=== PATIENT | female | born 1930 | race Caucasian/White ===

== ENCOUNTER → 2016-11-17 | Outpatient (CLI) | payer OTHER, MEDICARE ==
[~2016-11-17] VITALS: Ht 165.1 cm; Wt 58.1 kg
[~2016-11-17] MED LIST: ALFALFA250 MG PO; AMITIZA 24 MCG24 MC1 PO; APAP500 PO; ARTIFICIAL TEA1 EACH OP; ASPIRIN325 PO; ATROVENT15 ML NS; AZOPT OPHTH1 %/10 M1 OP; B-100 COMPLEX1 EAC1 PO; BAYER ADVANCED500 MG PO; BUTRANS1 EAC1 TD; CALCIUM CITRATE; CENTRUM SILVER1 EAC4 PO; CO Q-10200 MG PO; COMBIGAN EYE DR10 ML OP; DIGITEK250 MC1 PO; DIGOXIN250 MCG PO; DILAUDID 2 MG TA2 MG PO; DILAUDID2 MG PO; ESCITALOPRAM OXA5 MG PO; FISH OIL 1,0001 EAC5 PO; FOLIC ACID0.8 MG PO; GINKGO BILOBA120 M1 PO; GINKGO BILOBA40 M1 PO; GLUCOSAMINE &1 EACH PO; HYDROCODON-ACE1 EAC7 PO; IBUPROFEN 200200 M1 PO; KELP1 EACH PO; LATANOPROST 0.2.5 ML OP; MECLIZINE HCL25 M1 PO; METHADONE HCL5 MG PO; MOBIC7.5 MG PO; MOVANTIK25 MG PO; NAMENDA 10 MG T10 MG PO; NASONEX17 GM NS; OMEGA-31000 MG PO; TRIAMTERENE-HC1 EAC1 PO; VITAMIN B-12500 MCG PO; VITAMIN B1 PO; VITAMIN C + RO500 MG PO; VITAMIN D2 PO; VITAMIN D2400 UNIT PO; VITAMIN D31000 UNI2 PO; VITAMIN E400 UNIT PO; [UNRECOGNIZED DRUG - OTHER]; [UNRECOGNIZED DRUG - OTHER]; [UNRECOGNIZED DRUG - OTHER] PO; [UNRECOGNIZED DRUG - OTHER] PO; [UNRECOGNIZED DRUG - OTHER] PO
--- NOTE | ~2016-11-17 | HPC ---
[facility] [address] [place] [address] PAIN MANAGEMENT CONSULTATION Name: VIOLETTA BYERS Room #: REG GUERA Deya.#: [id number] Admission: 11/17/16 Attend Phys: Dariel Garcia MD Discharge: Date of : 30 Report #: [id number] THIS REPORT FOR: //name// CC: Rusty Garcia DATE OF SERVICE: 11/17/2016 Follow up visit for osteoarthritis and low back pain following lumbar fusion. The patient is here today with her daughter for an epidural injection. She has had good response to injections previously in the past, reporting at times up to 3-4 months of excellent relief. This favorable response is the reason that they have returned to the pain clinic today, hopeful that an injection will provide further improvement. They understand that these are not cure injections, but can provide quite substantial improvement in quality of life for the patient. Pain today is described as a 5, it is worse in her back and with walking. She walks upright with local discomfort over her scar as well as into the lower back and hips. MEDICATIONS: Amitiza, methadone 5 mg b.i.d., Movantik, Tylenol, omega-3, Atrovent, cholecalciferol, Antivert, Lexapro, digoxin, and triamterene/hydrochlorothiazide. ALLERGIES: No allergies or sensitivities. PHYSICAL EXAMINATION: She is a karo, somewhat forgetful 86-year-old. Mild dementia has been noted previously. Blood pressure is 156/89, heart rate 62, respirations 16, she is 5 feet 5 inches, and 128 pounds. She walks with bilateral canes. She can walk short distances, but is little unsteady due to vertigo. Chest is clear. Cardiac rhythm was regular. Pain across the low back is noted with limited flexion and extension due to her fusion. Straight leg raising bilaterally reproduces pain into the hips, but no further limited radicular symptoms. IMPRESSION: 1. Post-laminectomy syndrome with radiculopathy. Status post lumbar fusion. 2. Osteoarthritis, particularly left shoulder, which is now better after recent treatments. 3. Management of high risk medication, methadone 2.5 mg now 3 times daily. 4. Opioid-induced constipation. 5. Lumbar radiculopathy with spondylosis. PROCEDURE: Epidural steroid injection under fluoroscopic guidance. [address] [address] PAIN MANAGEMENT CONSULTATION Name: VIOLETTA BYERS Room #: REG GUERA Cuadra#: [id number] Admission: 11/17/16 Attend Phys: Dariel Garcia MD Discharge: Date of : 30 Report #: [id number] The patient was taken to fluoroscopic suite, placed prone, skin prepped with ChloraPrep and a 20-gauge Tuohy epidural needle advanced at first attempt into the epidural space with loss of resistance. No blood or CSF aspirated. A 1 mL of Omnipaque was injected, spread of dye observed nicely into the epidural space followed by 3 mL of 0.5% lidocaine mixed with 80 mg of triamcinolone. She tolerated the procedure well and was observed for 45 minutes and discharged. Follow up as needed. <ELECTRONICALLY SIGNED> By: Dariel Garcia MD 11/29/16 1130 1601 2206 Dariel Garcia MD /nt
--- NOTE | ~2016-11-17 | EKG ---
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
[2016-11-17 11:30] VITALS: BP 156/89
== END | disposition home or self-care (01) ==
LOC: PAIN 07:04
DX: M96.1 Postlaminectomy syndrome, not elsewhere classified (principal); M19.012 Primary osteoarthritis, left shoulder; M47.26 Other spondylosis with radiculopathy, lumbar region; G89.29 Other chronic pain; K59.09 Other constipation; Z87.891 Personal history of nicotine dependence

== ENCOUNTER → 2017-04-09 | Outpatient (CLI) | payer OTHER, MEDICARE ==
[~2017-04-09] VITALS: Ht 165.1 cm; Wt 58.5 kg
[~2017-04-09] MED LIST changes: +MIRALAX17 GM PO; +SENOKOT-S1 TA1 PO
--- NOTE | ~2017-04-09 | HPC ---
[facility] [address] [place] [address] PAIN MANAGEMENT CONSULTATION Name: VIOLETTA BYERS Room #: REG GUERA Deya.#: [id number] Admission: 04/09/17 Attend Phys: Dariel Garcia MD Discharge: Date of : 30 Report #: [id number] THIS REPORT FOR: //name// CC: ASHLEY Garcia DATE OF SERVICE: 04/09/2017 Followup visit for low back pain and radiculopathy. The patient returns to pain clinic today and I am pleased to report that she has done very well with her methadone at a fairly low dose. She takes 2.5 mg 3 times a day. Her daughter is with her today. We discussed the use of this medication. All of methadone has reputation of being a rather stronger pain medication and I have used it multiple times in patients in their 8, one patient even in her 90s in our practices, even on dose as high as 60 mg. It is tolerated well and is continuing to play bridge! The same may be said for the patient who already has some problems with memory. There has been little change in her affect or in her cognitive abilities as we have added methadone. What we have seen, however, is substantial reduction in her pain. This has been a pleasant surprise to the patient and her daughter. She does not complain of her left shoulder anymore or her low back. Her pain score today is 0/10. Some ways this has been a very miraculous medication for her and they are pleased to want to continue on it. She denies any significant side effects including constipation, but has stool softeners and laxatives, which help prevent these issues. I provided her with a prescription today for her methadone 45 tablets per month, which is taken one-half tablet 3 times a day and also Amitiza, which can be taken on an as needed basis. PHYSICAL EXAMINATION: She appears younger than her stated age. She uses bilateral canes to walk. She has no difficulty getting up and down on her own. She has some tenderness across her low back and into the legs. IMPRESSION: 1. Chronic low back pain with radiculopathy. 2. Management of high risk medication, gabapentin. 3. Some cognitive issues, which predate the use of her medication. These have not been affected by the use of her drugs. 4. Osteoarthritis, particularly of the left shoulder. PLAN: Medications renewed for 3 months, methadone and Amitiza and I plan to see her at that time. In terms of our opioid agreement, we reviewed the importance [address] [place] [address] PAIN MANAGEMENT CONSULTATION Name: VIOLETTA BYERS Room #: REG [facility] Deya.#: [id number] Admission: 04/09/17 Attend Phys: Dariel Garcia MD Discharge: Date of : 30 Report #: [id number] of safeguarding medication so that they cannot be diverted by others was discussed. By: [id number] MD karina Brown
[2017-04-09 14:27] VITALS: BP 133/75
== END | disposition home or self-care (01) ==
LOC: PAIN 06:48
DX: M54.10 Radiculopathy, site unspecified (principal); M19.012 Primary osteoarthritis, left shoulder; Z87.891 Personal history of nicotine dependence

== ENCOUNTER → 2017-10-05 | Outpatient (CLI) | payer OTHER, MEDICARE ==
[~2017-10-05] VITALS: Ht 162.6 cm; Wt 55.8 kg
[~2017-10-05] MED LIST changes: +ASPIR 8181 MG PO; +HYDROCODONE-AP1 EAC6 PO; +MECLIZINE HCL25 MG PO; +MOVANTIK12.5 MG PO; +PROAIR RESPICL90 MCG INH
--- NOTE | ~2017-10-05 | HPC ---
[facility] [address] [place] [address] PAIN MANAGEMENT CONSULTATION Name: VIOLETTA BYERS Room #: REG GUERA FalkAlexis#: [id number] Admission: 10/05/17 Attend Phys: Dariel Garcia MD Discharge: Date of : 30 Report #: [id number] THIS REPORT FOR: //name// CC: Rusty Garcia DATE OF SERVICE: 10/05/2017 Followup visit for management of high risk medications. HISTORY OF PRESENT ILLNESS: The patient is here today with her daughter. She is doing pretty well. She is 87 years old, but certainly looks much younger. She has some early dementia and some of this is concealed in speaking with her until it has been a little bit more time. She has ongoing pain, which is 8 with movement in her left shoulder and low back. It is worse with activities. MEDICATIONS: Reviewed and reconciled. ALLERGIES: None. PQRS REVIEW: She is a nonsmoker. She is not a fall risk at this time. She is on opioid medication and is on an opioid agreement, medications are managed for her with the assistance of her daughter. They both understand the importance of safeguarding medication. She is not hypertensive. Her weight is controlled and she has a BMI of 21.1. She appears fit and younger than her stated age. She has arthritis mostly in the left shoulder, which bothers her considerably and is her primary pain generator with her low back probably secondary: IMPRESSION: 1. Chronic low back pain with radiculopathy. 2. Osteoarthritis, left shoulder. 3. Management of high risk medication. RECOMMENDATIONS: Medications renewed under terms of our opioid agreement. Followup visit is planned in 3 months. MEDICATIONS ON DISCHARGE: Methadone 5 mg one-half tablet in the morning and one tablet p.m.; hydrocodone 5/325 one tablet for breakthrough pain daily; Movantik 12.5 mg daily p.r.n., #12 per month, a very expensive medication. By: [id number] Dariel Garcia MD /nt
[2017-10-05 13:05] VITALS: BP 139/87
== END ==
LOC: PAIN 07:12
DX: M54.16 Radiculopathy, lumbar region (principal); M19.012 Primary osteoarthritis, left shoulder; F03.90 Unspecified dementia, unspecified severity, without behavioral disturbance, psychotic disturbance, mood disturbance, and anxiety; Z79.899 Other long term (current) drug therapy

== ENCOUNTER → 2019-05-26 | Outpatient (CLI) | payer OTHER, MEDICARE ==
[~2019-05-26] VITALS: Ht 162.6 cm; Wt 61.2 kg
[~2019-05-26] MED LIST changes: +VOLTAREN GEL 1100 G1 TOP; +XANAX 0.25 MG0.25 MG PO
[2019-05-26 13:24] VITALS: BP 151/91
--- NOTE | 2019-05-26 13:42 | NUR ---
Pain Clinic Assessment: 1. History of Osteoarthritis: SPINE JOINTS History of Rheumatoid Arthritis: 2. Height: 5 ft. 4 in. 162.6 cm. Weight: 135.0 lb. oz. 61.236 kg. Patient's BMI: 23.2 3. Vital Signs: BP: 151/91 Pulse: 75 Resp: 16 Temp: 02 Sat: 97 ECG Mon: 4. Pain Intensity: Unable to Rate 5. Fall Risk: Dizziness: N Needs help standing or walking: Y Fallen in the last 3 months: Y Fall risk comments: 6. Patient on Blood Thinner: None 7. History of Hypertension: Y 8. Opioid Therapy greater than 6 weeks: Y Opiate Contract Signed: 01/25/18 9. Risk Assessment Tool Provided: LOW 10. Functional Assessment Tool: 11. Recreational Drug Use: Never Drug Type: Tobacco Use: Former Smoker Tobacco Type: Amount or Packs/day: How Many Years: Alcohol Use: Yes Frequency: Weekly Quant:
--- NOTE | 2019-05-30 08:39 | HPC ---
[facility] [address] [place] [address] PAIN MANAGEMENT CONSULTATION Name: VIOLETTA BYERS Room #: REG [facility] Khalif#: [id number] Admission: 05/26/19 Attend Phys: Yisel James Discharge: Date of : 30 Report #: [id number] THIS REPORT FOR: //name// CC: Yisel James [facility] DATE OF SERVICE: 05/26/2019 CHIEF COMPLAINT: Chronic shoulder pain, osteoarthritis and abdominal pain. HISTORY OF PRESENT ILLNESS: This is an 88-year-old female who returns to the pain clinic today with her daughter who is here present with her today. She does live with this daughter. The patient has memory issues though she is able to function at a high level. Regarding her activities, she is forgetful and able to tell me some history. We have not seen the patient for a year. In this timeframe, she has been doing quite well. According to her daughter, she is no longer taking methadone and only takes hydrocodone very sparingly, as well as some Tylenol Extra Strength sparingly throughout the day for her pain control. She is reporting pain in her low back and her abdomen and shoulder today. It is a dull pain, but she was unable to give me a pain score. She said her back pain is worse especially when bending, but her medications that she takes are helpful as well as lying down. The patient has been recently having significant eye issues undergoing glaucoma surgery that was unsuccessful. Does rely on her daughter for many things. She has ongoing issues with constipation unrelated to opioids. They do utilize coconut oil as well as Senokot-S. The daughter is requesting a refill of her hydrocodone to have on hand that the patient takes a half to one tablet sparingly when she has very severe pain. ALLERGIES: No known drug allergies. CURRENT LIST OF MEDICATIONS: Hydrocodone 5/325 p.r.n., Xanax 0.25 mg p.r.n., Senokot daily, Tylenol Extra Strength daily, artificial tears, latanoprost drops daily, Azopt ophthalmic drops b.i.d., digoxin 250 mcg daily. PQRS: 1. She has history of osteoarthritis in her spine and her shoulder. Denies history of rheumatoid arthritis. 2. Height is 5 feet 4 inches, weight is 135, BMI is 23. 3. Vital signs: Blood pressure 151/91, pulse is 75, respirations 16, oxygen sat is 97. Unable to rate her pain score. 4. Denies dizziness. Does need help walking. She has a walker at all times and has fallen in the last 3 months. 5. The patient is not on any blood thinners, but does [place] [address] PAIN MANAGEMENT CONSULTATION Name: VIOLETTA BYERS Room #: REG GUERA Cuadra#: [id number] Admission: 05/26/19 Attend Phys: Yisel James Discharge: Date of : 30 Report #: [id number] 6. Her opioid therapy is greater than 6 weeks; therefore, an opioid signed contract is on the chart. Her risk assessment tool is low. Functional assessment is 26/70. 7. Recreational drug use, she denies. She is a former smoker and occasionally drinks alcohol. We did call the pharmacy. Her last fill was greater than 6 months ago for her medications of any narcotics. PHYSICAL EXAMINATION: GENERAL: This is a pleasant and alert, but forgetful 88-year-old female. HEENT: Normocephalic, atraumatic. Extraocular eye muscles are intact. Mucous membranes are moist. MUSCULOSKELETAL: Pain with abduction and internal rotation of her bilateral shoulders. Lower back pain is increased with extension and flexion. She walks with an antalgic gait using a walker at all times. Her lower extremity strength judged to be 5/5 in all major muscle groups. IMPRESSION: 1. Osteoarthritis involving the left shoulder as well as the right shoulder. 2. Dementia. 3. Low back pain. PLAN: 1. We discussed the patient's use of medications today. I find that it is very reasonable to allow them to have a small amount of hydrocodone on hand when the patient does experience severe pain. No scripts have been given in greater than a year and they not filled in the last 6 months. I explained to the family that the CDC guidelines have changed significantly in the past year. She may only be able to fill a 7-day supply of this medicine, but since she does have a history of filling narcotics in the past, they may get filled the entire prescription. Family verbalizes understanding. Scripts given today for hydrocodone 5/325 one q.6 hours, #30 for one prescription only. The patient will have the family called if they are needing additional medications in the future and will come in for an appointment. 2. We did talk about constipation issues, the patient experiences even without narcotics. She may need to increase her water intake as well as her Senokot and her coconut oil. 3. The patient's family will call as needed. Dr. Dariel Garcia did collaborate care with this patient. <ELECTRONICALLY SIGNED> By: Yisel James 05/30/19 0839 [id number] [id number] Yisel James /kiko
== END ==
LOC: PAIN 07:00
DX: M19.012 Primary osteoarthritis, left shoulder (principal); M19.011 Primary osteoarthritis, right shoulder; M54.5 Low back pain; F03.90 Unspecified dementia, unspecified severity, without behavioral disturbance, psychotic disturbance, mood disturbance, and anxiety; Z88.8 Allergy status to other drugs, medicaments and biological substances

== ENCOUNTER → 2019-12-08 | Outpatient (CLI) | payer OTHER, MEDICARE ==
[~2019-12-08] VITALS: Ht 162.6 cm; Wt 62.3 kg
[~2019-12-08] MED LIST changes: +MIRALAX119 GM PO
[2019-12-08 14:25] VITALS: BP 167/78
--- NOTE | 2019-12-08 14:36 | NUR ---
Pain Clinic Assessment: 1. History of Osteoarthritis: SPINE JOINTS History of Rheumatoid Arthritis: Not Applicable 2. Height: 5 ft. 4 in. 162.6 cm. Weight: 137.4 lb. oz. 62.324 kg. Patient's BMI: 23.6 3. Vital Signs: BP: 167/78 Pulse: 83 Resp: 20 Temp: 02 Sat: 98 ECG Mon: 4. Pain Intensity: 3 5. Fall Risk: Dizziness: N Needs help standing or walking: Y Fallen in the last 3 months: N Fall risk comments: 6. Patient on Blood Thinner: None 7. History of Hypertension: Y 8. Opioid Therapy greater than 6 weeks: Y Opiate Contract Signed: 01/25/18 9. Risk Assessment Tool Provided: LOW 10. Functional Assessment Tool: 11. Recreational Drug Use: Never Drug Type: Tobacco Use: Former Smoker Tobacco Type: Amount or Packs/day: How Many Years: Alcohol Use: No Frequency: Quant:
--- NOTE | 2019-12-12 12:47 | HPC ---
[facility] [place] [address] PAIN MANAGEMENT CONSULTATION Name: VIOLETTA BYERS Room #: REG GUERA Cuadra#: [id number] Admission: 12/08/19 Attend Phys: Yisel James Discharge: Date of : 30 Report #: [id number] THIS REPORT FOR: cc: Rusty Mcclendon MD, Frank W. MD Hocker,Yisel SANCHEZ THIS REPORT FOR: //name// CC: Yisel Mcclendon DATE OF SERVICE: 12/08/2019 CHIEF COMPLAINT: Chronic shoulder pain, osteoarthritis and back pain. HISTORY OF PRESENT ILLNESS: This is an 89-year-old female, who we have not seen since last May, who was returned to the pain clinic today for a refill of her medications that she has been taking very sparingly under the direction of her daughter who she currently lives with. The patient tells me her back pain is quite tender, rating it at a pain score of 3/10. Per the family's report, the patient does complain of increasing pain when she is walking for prolonged periods of time or after getting ready in the morning. She feels that resting as well as taking an occasional pain pill or Tylenol has been beneficial. The patient has been able to answer some of my questions today, though she does have issues with memory and the daughter has been helpful in filling in the gaps of some of her activity and medication at this time. The patient does not have problems with constipation as long as she takes MiraLax or manages it with diet on a regular basis. She is not suffering from any daytime sleepiness. She has been able to wean off some of her other medications since she has been living with her daughter. Today, they are requesting refill of her hydrocodone. ALLERGIES: No known drug allergies. CURRENT LIST OF MEDICATIONS: MiraLax, hydrocodone 5/325 p.r.n., Xanax 0.25 mg daily, ProAir, Tylenol Extra Strength daily, artificial tears, latanoprost and Azopt drops. PQRS: 1. She has osteoarthritis in multiple joints in her spine. Denies any rheumatoid arthritis. 2. Height is 5 feet 4 inches, weight is 137, BMI is 23. 3. Vital signs 167/78, pulse is 83, respirations 20, oxygen sat is 98. 4. Pain score is 3/10. 5. Denies dizziness. The patient does use a walker at all times. Has not fallen in the last [address] [address] PAIN MANAGEMENT CONSULTATION Name: VIOLETTA BYERS Room #: REG [facility].#: [id number] Admission: 12/08/19 Attend Phys: Yisel James Discharge: Date of : 30 Report #: [id number] 6. The patient is not on any blood thinners, but does take medicine for hypertension. Her opioid therapy is greater than 6 weeks. There is an opioid signed contract on the chart, though she is not filling her medicines in a monthly fashion. 7. Risk assessment tool is low. Functional assessment is 26/70. 8. Recreational drug use, she denies. She is a former smoker and does not drink alcohol. Her last prescription fill was in May. Her morphine mEq is less than 5 MMEs per day. PHYSICAL EXAMINATION: GENERAL: This is a pleasant and alert 89-year-old female that is forgetful in some of her thoughts. She does suffer from dementia. HEENT: Normocephalic, atraumatic. Extraocular eye muscles are intact. Mucous membranes are moist. Her left eye, she is legally blind. Her right eye, she has decreased visual galindo. MUSCULOSKELETAL: She has pain across her lumbar spine that does increase with flexion and rotation. She walks with an antalgic gait using a walker at all times. Her lower extremity strength judged to be 4/5 in all major muscle groups, though she is deconditioned. IMPRESSION: 1. Osteoarthritis involving her multiple joints. 2. Dementia. 3. Low back pain. PLAN: 1. We discussed treatment options with the patient today. The patient reports that with her family present that the medications seem to be beneficial when she does have increased pain, especially when she is walking. They do take her to the park and the mall to walk fairly frequently and try to offer her hydrocodone prior to increase activity. The patient feels this is beneficial. She also takes supplemental Extra Strength Tylenol for her pain. I explained to them that we will refill her hydrocodone 5/325, first we will prescribe 30 pills. Since it has been several months since her last prescription fill, the pharmacy may only allow a 7-day supply. We will then write a second prescription to be released in 1 week for again hydrocodone 5/325, #30 pills. Based on the patient's history, this medication may last for 3-6 months. The family verbalize understanding. 2. The patient is seen today in collaboration with Dr. Dariel Garcia who agreed upon the plan. The patient returned as needed for medications. <ELECTRONICALLY SIGNED> By: Yisel James 12/12/19 1247 1521 [id number] Yisel James /kiko
== END ==
LOC: PAIN 06:54
DX: M19.011 Primary osteoarthritis, right shoulder (principal); M19.012 Primary osteoarthritis, left shoulder; F03.90 Unspecified dementia, unspecified severity, without behavioral disturbance, psychotic disturbance, mood disturbance, and anxiety; M54.5 Low back pain; Z79.899 Other long term (current) drug therapy